=== PATIENT | male | born 1990 | race Caucasian/White ===

== ENCOUNTER 2019-07-27 14:06 | Emergency (ER) | payer OTHER ==
--- NOTE | 2019-07-27 14:21 | EDM.PDOC ---
ED HPI GENERAL MEDICAL PROBLEM - General Stated Complaint: fell and hurt right wrist Time Seen by Provider: 07/27/19 14:06 Source of Information: Reports: Patient History Limitations: Reports: No Limitations - History of Present Illness INITIAL COMMENTS - FREE TEXT/NARRATIVE: 28-year-old male who was on a roof trying to attend to some plumbing issues stepped in a snowbank and the snow broke from the roof and he slid off onto the road falling 12 feet onto a dirt surface. Initially he thought he was okay other than mild back discomfort and right arm discomfort, but then noticed that his right wrist is swollen and slightly deformed. This happened 45 minutes ago [place] of [facility] [place] 20 miles. Trauma code was called because of the height of the fall which was 12 feet. [place] Coma Scale was 15. Vitals are stable. Patient's only complaint is his right wrist at this time. He did not significantly hit his head, did not lose consciousness, has memory of the full event. Onset: Sudden Duration: Minutes: (45 minutes ago) Location: Reports: Upper Extremity, Right Associated Symptoms: Reports: Other (Mild back stiffness is his only other complaint, no shortness of breath, chest or neck pain) - Related Data Allergies Allergy/AdvReac Type Severity Reaction Status Date / Time No Known Allergies Allergy Verified 07/27/19 14:27 Home Meds: Home Meds NK [No Known Home Meds] 07/27/19 [History] Review of Systems - Review of Systems Review Of Systems: See Below Constitutional: Denies: Fever Eyes: Reports: No Symptoms Mouth/Throat: Reports: No Symptoms Respiratory: Reports: No Symptoms Cardiovascular: Reports: No Symptoms Musculoskeletal: Reports: Other (Right wrist pain) Skin: Denies: Bruising Neurological: Reports: Other (Right hand fingers are feeling a little "numb" but he has had his hand iced) Psychiatric: Reports: No Symptoms ED EXAM, GENERAL - Physical Exam Exam: See Below Exam Limited By: No Limitations General Appearance: Alert, No Apparent Distress (Uncomfortable but not distressed) Eye Exam: Bilateral Eye: EOMI Head: Atraumatic Neck: Supple Respiratory/Chest: Lungs Clear Cardiovascular: Regular Rate, Rhythm. No: Tachycardia GI/Abdominal: Non-Tender Back Exam: Normal Inspection Extremities: Other (Patient has no pain to palpation of the shoulders elbows bilaterally but does have a swollen tender and slightly disfigured right wrist) Neurological: Alert, Oriented, Other (some paresthesias of the fingers of the right hand) Psychiatric: Normal Affect, Normal Mood Skin Exam: Warm, Dry Course - Vital Signs Last Recorded V/S: Last Vital Signs Temp 97.1 F 07/27/19 16:00 Pulse 92 07/27/19 16:00 Resp 16 07/27/19 16:00 BP 130/82 07/27/19 16:00 Pulse Ox 99 07/27/19 16:00 - Orders/Labs/Meds Orders: Active Orders 24 hr Category Date Time Status DME for Discharge [COMM] Stat Oth 07/27/19 15:40 Ordered Meds: Medications Discontinued Medications Generic Name Dose Route Start Last Admin Trade Name Ortega PRN Reason Stop Dose Admin Hydromorphone HCl 0.5 mg 07/27/19 14:55 Dilaudid IVPUSH 07/27/19 14:56 ONETIME ONE Propofol 100 mg 07/27/19 15:04 Diprivan 20 Ml IVPUSH 07/27/19 15:05 ONETIME ONE Propofol Confirm 07/27/19 15:07 Diprivan 20 Ml Administered 07/27/19 15:08 Dose 200 mg .ROUTE .STK-MED ONE - Re-Assessments/Exams Free Text/Narrative Re-Assessment/Exam: 07/27/19 14:21 A wrist x-ray was obtained. 07/27/19 14:45 X-ray shows a perilunate dislocation and possible scaphoid fracture. Dr. Holley was not available for assistance, so anesthesia was consulted for assistance with sedation. Patient was having increased pain so was given 0.5 mg of IV Dilaudid during the preparation for sedation with propofol. 07/27/19 15:34 Patient's fingers were getting increasingly numb and painful so after consent, 180 mg of propofol was given with good sedation by myself, and the wrist dislocation was reduced with countertraction. Postreduction x-ray was obtained that indeed showed a scaphoid fracture. There appeared to be significant separation of the fragments. A sugar tong splint was placed to the forearm, 34 total inches of 4 inch Ortho-Glass. Bedside care was given while the patient was under anesthesia for 20 minutes. 07/27/19 16:34 After orthopedic consultation with Dr. Holley, it was recommended he see hand surgery. [facility] was consulted and they will see the patient in the near future. A sling was provided to the patient as well as 10 hydrocodone for extra pain control. He will follow up with [facility] when scheduled. Departure - Departure Time of Disposition: 16:44 Disposition: Home, Self-Care 01 Clinical Impression: Closed perilunate dislocation of right wrist Qualifiers: Encounter type: initial encounter Qualified Code(s): S63.094A - Other dislocation of right wrist and hand, initial encounter Fracture of scaphoid bone of right wrist Qualifiers: Encounter type: initial encounter Scaphoid bone location: middle third Fracture type: closed Fracture alignment: displaced Qualified Code(s): S62.021A - Displaced fracture of middle third of navicular [scaphoid] bone of right wrist , initial encounter for closed fracture - Discharge Information Instructions: Scaphoid Fracture Referrals: PCP,None [Primary Care Provider] - Forms: ED Department Discharge Care Plan Goals: Keep wrist immobilized in a splint until rechecked. A regular dose of ibuprofen or naproxen will be helpful and use stronger pain medication as prescribed if needed. Recheck with orthopedics as scheduled. Sepsis Event Note - Focused Exam Date Exam was Performed: 07/28/19 Time Exam was Performed: 07:00 - My Orders Last 24 Hours: My Active Orders 07/27/19 15:40 DME for Discharge [COMM] Stat - Assessment/Plan Last 24 Hours: My Active Orders 07/27/19 15:40 DME for Discharge [COMM] Stat
--- NOTE | 2019-07-27 14:37 | CRLCR ---
Indication: Fall from roof Technique: Three views is right wrist Comparison: None Findings: There is a perilunate dislocation with associated soft tissue swelling around the wrist. Questionable fracture through the mid scaphoid. Remainder of the osseous structures are intact. Consider CT wrist for complete evaluation. Dictated by Aurora Hamm MD @ Jul 27 2019 2:30PM Signed by Dr. Aurora Hamm @ Jul 27 2019 2:35PM
[2019-07-27] MEDS ORDERED: HYDROmorphone 0.5 MG/0.5 ML Syringe IVPUSH ONE (14:55)
[2019-07-27] MEDS ORDERED: HYDROmorphone 0.5 MG/0.5 ML Syringe ONE (14:57)
[2019-07-27] MEDS ORDERED: Propofol 200 MG/20 ML SDV ONE ×2 (14:57→15:07)
[2019-07-27] MEDS ORDERED: Propofol 200 MG/20 ML SDV IVPUSH ONE ×2 (15:04→16:13)
--- NOTE | 2019-07-27 15:58 | CRLCR ---
Indication: Injured right wrist. Technique: Three views of the right wrist. Comparison: None Findings: A questionable scaphoid fracture is identified. Consideration should be given to a dedicated navicular view of the wrist. No other fractures are identified. Impression: Questionable scaphoid fracture. Consideration should be given to dedicated scaphoid film Dictated by Imelda Rubin MD @ Jul 27 2019 3:56PM Signed by Dr. Imelda Rubin @ Jul 27 2019 3:57PM
== END 2019-07-27 16:43 | disposition home or self-care (01) ==
LOC: JP.ED 14:06
DX: S63.094A Other dislocation of right wrist and hand, initial encounter (principal); S62.021A Displaced fracture of middle third of navicular [scaphoid] bone of right wrist, initial encounter for closed fracture; W17.89XA Other fall from one level to another, initial encounter
CPT/HCPCS: 25690; 73100; 73110; 99283; 99284; J1170; J2704